=== PATIENT | male | born 1975 | race Caucasian/White ===

== ENCOUNTER 2020-07-30 11:39 | Emergency (ER) | payer MEDICAID ==
[~2020-07-30] VITALS: Ht 162.6 cm; Wt 55.8 kg
[2020-07-30 12:11] VITALS: BP 137/98; Ht 162.6 cm; Wt 55.8 kg
== END 2020-07-30 14:15 | disposition left against medical advice (07) ==
LOC: ED 11:39
DX: Z53.21 Procedure and treatment not carried out due to patient leaving prior to being seen by health care provider (principal)